=== PATIENT | female | born 1945 | race Hispanic/Latino ===

== ENCOUNTER 2018-05-31 16:44 | Emergency (ER) | payer MEDICARE ==
[~2018-05-31 16:44] MED LIST: ACET650T9 PO; AMLO10TA6 PO; CARV25TA PO; FOLI1TAB85 PO; FURO40TA5 PO; GLIM2TAB3 PO; HYDR100T27 PO; INSLAN SQ
== END 2018-05-31 17:38 | disposition home or self-care (01) ==
LOC: EDH 16:44
DX: I10 Essential (primary) hypertension (principal); F41.9 Anxiety disorder, unspecified; E11.9 Type 2 diabetes mellitus without complications; E78.5 Hyperlipidemia, unspecified; Z79.4 Long term (current) use of insulin
CPT/HCPCS: 99281

== ENCOUNTER 2018-08-16 18:08 | Emergency (ER) | payer MEDICARE ==
[~2018-08-16 18:08] MED LIST changes: -AMLO10TA6 PO; +AMLO10TA7 PO
[2018-08-16] MEDS ORDERED: CLINDAMYCIN HCL 150 MG CAP ONE (18:42)
[2018-08-16 18:58] LABS: BASOPHILS % (AUTO) 0.6 % (0.0-5.0); EOSINOPHILS % (AUTO) 3.2 % (0.0-8.0); HEMATOCRIT 31.3 % (36-48); LYMPHOCYTES % (AUTO) 36.4 % (21.0-51.0); MEAN CORPUSCULAR HEMOGLOBIN 31.1 pg (27.0-33.0); MEAN CORPUSCULAR HGB CONC 34.9 g/dL (32.0-36.0); MEAN CORPUSCULAR VOLUME 89.3 fL (79-99); MONOCYTES % (AUTO) 7.7 % (3.0-13.0); NEUTROPHILS % (AUTO) 52.1 % (40.0-77.0); NUCLEATED RED BLOOD CELLS 0.1 % (0.0-0.19); PLATELET COUNT (AUTO) 190 K/uL (130-400); RED BLOOD CELL COUNT(AUTO) 3.51 MIL/uL (4.00-5.50); WHITE BLOOD COUNT (AUTO) 6.9 K/uL (4.8-10.8)
[2018-08-16 19:34] LABS: CREATININE 2.5 mg/dL (0.5-1.5); POTASSIUM 4.1 mmol/L (3.5-5.1)
[2018-08-16 19:37] LABS: ALBUMIN 3.4 g/dL (3.5-5.0); BILIRUBIN,TOTAL 0.2 mg/dL (0.2-1.0); TOTAL PROTEIN, SERUM 7.8 g/dL (6.0-8.3)
== END 2018-08-16 21:09 | disposition home or self-care (01) ==
LOC: EDH 18:08
DX: L03.031 Cellulitis of right toe (principal); I12.9 Hypertensive chronic kidney disease with stage 1 through stage 4 chronic kidney disease, or unspecified chronic kidney disease; E11.22 Type 2 diabetes mellitus with diabetic chronic kidney disease; N18.9 Chronic kidney disease, unspecified; E78.5 Hyperlipidemia, unspecified; Z79.4 Long term (current) use of insulin
CPT/HCPCS: 36415; 73630; 80053; 85025

== ENCOUNTER → 2018-08-26 | Outpatient (CLI) | payer MEDICARE | END | disposition home or self-care (01) | LOC: OIH 09:55 | PROVIDERS: ATTEND Internal Medicine | DX: L03.031 Cellulitis of right toe (principal); M79.671 Pain in right foot; I70.8 Atherosclerosis of other arteries | CPT/HCPCS: 73620 ==

== ENCOUNTER 2020-08-10 09:32 | Inpatient (IN) | payer MEDICARE ==
[~2020-08-10] VITALS: Ht 160 cm; Wt 91.9 kg
[~2020-08-10 09:32] MED LIST changes: -ACET650T9 PO; +AMLO-258 PO; -AMLO10TA7 PO; +ATOR20TA65 PO; -CARV25TA PO; +CARV25TA77 PO; +FERR-82 PO; -FURO40TA5 PO; -GLIM2TAB3 PO; -HYDR100T27 PO; -INSLAN SQ; +SODI650T PO
[2020-08-10 10:04] LABS: ABG BASE EXCESS -11.1 mmol/L (-2.0-3.0); ABG HCO3 14.7 mmol/L (21.0-28.0); ABG OXYGEN SATURATION 79.5 % (95.0-99.0); ABG PCO2 33 mmHg (32-45)
[2020-08-10 10:04] LABS: BASOPHILS % (AUTO) 0.2 % (0.0-5.0); LYMPHOCYTES % (AUTO) 5.6 % (21.0-51.0); MEAN CORPUSCULAR HEMOGLOBIN 30.2 pg (27.0-33.0); MEAN CORPUSCULAR HGB CONC 32.9 g/dL (32.0-36.0); MEAN CORPUSCULAR VOLUME 91.8 fL (79-99); MONOCYTES % (AUTO) 6.4 % (3.0-13.0); NEUTROPHILS % (AUTO) 87.1 % (40.0-77.0); PLATELET COUNT (AUTO) 208 K/uL (130-400); RED BLOOD CELL COUNT(AUTO) 3.05 MIL/uL (4.00-5.50); RED CELL DISTRIBUTION WIDTH 12.3 % (11.0-15.5)
[2020-08-10 10:17] LABS: INR 0.94 (0.85-1.15); PROTHROMBIN TIME 10.3 SEC (9.6-11.6)
[2020-08-10 10:18] LABS: PARTIAL THROMBOPLASTIN TIME 23.1 SEC (26.3-35.5)
[2020-08-10 10:30] LABS: ALBUMIN 2.7 g/dL (3.5-5.0); BILIRUBIN,TOTAL 0.5 mg/dL (0.2-1.0); CREATININE 3.5 mg/dL (0.5-1.5); POTASSIUM 5.7 mmol/L (3.5-5.1); TROPONIN I 0.13 ng/mL (0.00-0.06)
[2020-08-10] MEDS ORDERED: CALCIUM GLUC 1GM/10ML VIAL IV ONE (11:13)
[2020-08-10] MEDS ORDERED: ASPIRIN 325 MG TABLET ONE (11:14)
[2020-08-10] MEDS ORDERED: FUROSEMIDE 40MG VIAL ONE (11:14)
[2020-08-10] MEDS ORDERED: INSULIN HUMULIN R 100 UNIT/ML 3ML ONE ×2 (11:15→16:26)
[2020-08-10] MEDS ORDERED: 0.9%NACL 100ML 100 ML IV ONE (11:17)
[2020-08-10 11:49] LABS: APPEARANCE,URINE CLOUDY (CLEAR); BILIRUBIN,URINE NEGATIVE (NEGATIVE); COLOR,URINE YELLOW (YELLOW); GLUCOSE, URINE (UA) 500 mg/dL (NEGATIVE); KETONES,URINE NEGATIVE (NEGATIVE); LEUKOCYTE ESTERASE ,URINE NEGATIVE (NEGATIVE); NITRATE,URINE NEGATIVE (NEGATIVE); OCCULT BLOOD,URINE SMALL (NEGATIVE); PH,URINE 5.5 (5.0-8.0); PROTEIN,URINE >=300 mg/dL (NEGATIVE); UROBILINOGEN,URINE 0.2 mg/dL (0.2-1.0)
[2020-08-10 11:59] LABS: AMORPHOUS SEDIMENT,UR Moderate /LPF (None Seen); BACTERIA,URINE Few /HPF (None Seen); RBC,URINE 0-1 /HPF (0-1); SQUAMOUS EPITHELIAL CELL,UR 0-2 /HPF (0-2); WBC,URINE 0-1 /HPF (0-1)
[2020-08-10] MEDS ORDERED: ENOXAPARIN SODIUM 80 MG/0.8 ML SQ ONE (12:57)
[2020-08-10] MEDS ORDERED: LACTULOSE 20 GM/30 ML UDCUP PO PRN ×2 (13:30→20:15)
[2020-08-10] MEDS ORDERED: NITROGLYCERIN 50MG/D5W 250ML 250 BOT IV PRN (13:30)
[2020-08-10] MEDS ORDERED: CLONIDINE HCL 0.1 MG TABLET PO PRN (13:30)
[2020-08-10] MEDS ORDERED: MORPHINE 2 MG SYG IVP PRN (13:30)
[2020-08-10] MEDS ORDERED: DEXTROSE 50%-WATER 50 ML DISP.SYRIN IV PRN (13:30)
[2020-08-10] MEDS: FUROSEMIDE 40MG VIAL IV SCH (13:30)
[2020-08-10] MEDS ORDERED: GLUCAGON 1MG KIT 1 MG ML IM PRN (13:30)
[2020-08-10] MEDS: NITROGLYCERIN 1GM OINT 1 INCH/1GM TD SCH ×2 (13:30→19:30)
[2020-08-10] MEDS ORDERED: ACETAMINOPHEN 650 MG SUPPOSITORY RC PRN (13:30)
[2020-08-10] MEDS ORDERED: NITROGLYCERIN 0.4 MG SL TAB SL PRN (13:30)
[2020-08-10] MEDS ORDERED: SODIUM BICARBONATE 650 MG TAB ONE (14:05)
[2020-08-10] MEDS ORDERED: NITROGLYCERIN 1GM OINT 1 INCH/1GM TD ONE (14:06)
[2020-08-10 14:44] LABS: TROPONIN I 0.95 ng/mL (0.00-0.06)
[2020-08-10] MEDS ORDERED: INSULIN HUMULIN R 100 UNIT/ML 3ML SQ SCH (16:30)
[2020-08-10] MEDS: SODIUM BICARBONATE 650 MG TAB PO SCH (17:00)
[2020-08-10 19:00] VITALS: BP 155/64
[2020-08-10 20:00] VITALS: BP 154/76
[2020-08-10] MEDS ORDERED: RENAL DOSE IV PRN (20:00)
[2020-08-10 20:03] LABS: TROPONIN I 0.92 ng/mL (0.00-0.06)
[2020-08-10] MEDS ORDERED: ALBUTEROL 0.083% 2.5 MG/3 ML INH IH PRN (20:30)
[2020-08-10] MEDS: INSULIN HUMULIN R 100 UNIT/ML 3ML SQ SCH (20:30)
[2020-08-10 21:00] VITALS: BP 163/83
[2020-08-10] MEDS ORDERED: KAYEXALATE 15GM/60ML PO SCH (21:15)
[2020-08-10 22:00] VITALS: BP 177/80
[2020-08-10] MEDS: SOLU-MEDROL 40MG VIAL IVP SCH (22:16)
[2020-08-10] MEDS: METOPROLOL TARTRATE 25 MG TAB PO SCH (22:16)
[2020-08-10] MEDS: CEFTRIAXONE 1G VIAL IVP SCH (22:38)
[2020-08-10 23:00] VITALS: BP 163/76
[2020-08-10] MEDS: AZITHROMYCIN 500MG+NS 250ML 250 ML IV SCH (23:10)
[2020-08-11] VITALS (14 sets, daily range): BP systolic 147–172; BP diastolic 56–79
[2020-08-11] MEDS: NITROGLYCERIN 1GM OINT 1 INCH/1GM TD SCH ×4 (01:30→21:11)
[2020-08-11] MEDS: FUROSEMIDE 40MG VIAL IV SCH ×2 (01:30→12:38)
[2020-08-11 02:05] LABS: BASOPHILS % (AUTO) 0.3 % (0.0-5.0); HEMATOCRIT 24.2 % (36-48); LYMPHOCYTES % (AUTO) 3.4 % (21.0-51.0); MEAN CORPUSCULAR HEMOGLOBIN 30.2 pg (27.0-33.0); MEAN CORPUSCULAR HGB CONC 33.5 g/dL (32.0-36.0); MEAN CORPUSCULAR VOLUME 90.3 fL (79-99); MONOCYTES % (AUTO) 2.4 % (3.0-13.0); NEUTROPHILS % (AUTO) 93.4 % (40.0-77.0); PLATELET COUNT (AUTO) 191 K/uL (130-400); RED BLOOD CELL COUNT(AUTO) 2.68 MIL/uL (4.00-5.50); RED CELL DISTRIBUTION WIDTH 12.5 % (11.0-15.5); WHITE BLOOD COUNT (AUTO) 11.6 K/uL (4.8-10.8)
[2020-08-11 02:27] LABS: RETICULOCYTE % (AUTO) 2.41 % (0.42-2.23)
[2020-08-11 02:38] LABS: CREATININE 3.4 mg/dL (0.5-1.5); MAGNESIUM 2.3 mg/dL (1.80-2.40); PHOSPHORUS 4.9 mg/dL (2.5-4.9); THYROID STIMULATING HORMONE 1.23 uIU/mL (0.36-3.74)
[2020-08-11 02:42] LABS: TROPONIN I 0.61 ng/mL (0.00-0.06)
[2020-08-11 03:11] LABS: % IRON SATURATION 6.4 % (22-44)
[2020-08-11 05:21] LABS: ABG OXYGEN SATURATION 93.8 % (95.0-99.0); ABG PCO2 31 mmHg (32-45)
[2020-08-11] MEDS ORDERED: FUROSEMIDE 40MG VIAL IV SCH (05:30)
[2020-08-11] MEDS ORDERED: INSULIN HUMULIN R 100 UNIT/ML 3ML IV SCH (05:30)
[2020-08-11] MEDS ORDERED: CALCIUM GLUC 1GM/10ML VIAL IV SCH (05:30)
[2020-08-11] MEDS ORDERED: DEXTROSE 50%-WATER 25 GM/50 ML VIAL IV SCH (05:30)
[2020-08-11] MEDS ORDERED: KAYEXALATE 15GM/60ML RC SCH (05:30)
[2020-08-11] MEDS ORDERED: SODIUM BICARB 50MEQ 50ML VIAL IVPB ONE (05:30)
[2020-08-11] MEDS: INSULIN HUMULIN R 100 UNIT/ML 3ML SQ SCH ×4 (06:40→16:55)
[2020-08-11] MEDS: PANTOPRAZOLE 40 MG TAB DR PO SCH ×2 (08:00→08:30)
[2020-08-11] MEDS: METOPROLOL TARTRATE 25 MG TAB PO SCH ×2 (08:30→21:11)
[2020-08-11] MEDS ORDERED: KAYEXALATE 15GM/60ML PO PRN (08:30)
[2020-08-11] MEDS: SODIUM BICARBONATE 650 MG TAB PO SCH ×3 (08:30→17:00)
[2020-08-11] MEDS: ASPIRIN 81MG CHEW TAB PO SCH (08:31)
[2020-08-11] MEDS: Vitamin B Complex/Vit C/Folic Acid PO SCH (08:31)
[2020-08-11] MEDS: ENOXAPARIN SODIUM 80 MG/0.8 ML SQ SCH (08:32)
[2020-08-11] MEDS: SOLU-MEDROL 40MG VIAL IVP SCH ×2 (08:33→21:12)
[2020-08-11] MEDS ORDERED: ENOXAPARIN SODIUM 30 MG/0.3 ML SQ SCH (09:00)
[2020-08-11] MEDS ORDERED: IRON SUCROSE COMPLEX 100 MG in 0.9%NACL 50ML 50 ML IV ONE (16:00)
[2020-08-11] MEDS ORDERED: COMPOUND IV MISC 1 EACH IVSOLN MISC PRN (16:30)
[2020-08-11] MEDS: IRON SUCROSE COMPLEX 100 MG in 0.9%NACL 50ML 50 ML IV SCH (17:32)
[2020-08-11] MEDS: LABETALOL 20MG SYG IV PRN (19:00)
[2020-08-11] MEDS: CEFTRIAXONE 1G VIAL IVP SCH (21:11)
[2020-08-11] MEDS: AZITHROMYCIN 500MG+NS 250ML 250 ML IV SCH (21:27)
[2020-08-12] VITALS (23 sets, daily range): BP systolic 112–168; BP diastolic 53–117
[2020-08-12] MEDS ORDERED: INSULIN HUMULIN R 100 UNIT/ML 3ML SQ ONE (00:15)
[2020-08-12] MEDS: FUROSEMIDE 40MG VIAL IV SCH ×2 (00:40→21:14)
[2020-08-12] MEDS: NITROGLYCERIN 1GM OINT 1 INCH/1GM TD SCH ×4 (00:41→21:38)
[2020-08-12 03:44] LABS: ABG BASE EXCESS -4.1 mmol/L (-2.0-3.0); ABG HCO3 20.8 mmol/L (21.0-28.0); ABG OXYGEN SATURATION 93.9 % (95.0-99.0); ABG PCO2 38 mmHg (32-45)
[2020-08-12 03:48] LABS: BASOPHILS % (AUTO) 0.1 % (0.0-5.0); HEMATOCRIT 22.8 % (36-48); LYMPHOCYTES % (AUTO) 5.8 % (21.0-51.0); MEAN CORPUSCULAR HEMOGLOBIN 29.4 pg (27.0-33.0); MEAN CORPUSCULAR HGB CONC 32.9 g/dL (32.0-36.0); MEAN CORPUSCULAR VOLUME 89.4 fL (79-99); MONOCYTES % (AUTO) 4.7 % (3.0-13.0); NEUTROPHILS % (AUTO) 88.8 % (40.0-77.0); NUCLEATED RED BLOOD CELLS 0.3 % (0.0-0.19); PLATELET COUNT (AUTO) 211 K/uL (130-400); RED BLOOD CELL COUNT(AUTO) 2.55 MIL/uL (4.00-5.50); RED CELL DISTRIBUTION WIDTH 12.2 % (11.0-15.5); WHITE BLOOD COUNT (AUTO) 7.7 K/uL (4.8-10.8)
[2020-08-12 04:04] LABS: ALBUMIN 2.2 g/dL (3.5-5.0); BILIRUBIN,TOTAL 0.2 mg/dL (0.2-1.0); CREATININE 3.9 mg/dL (0.5-1.5); PHOSPHORUS 6.7 mg/dL (2.5-4.9)
[2020-08-12] MEDS: INSULIN HUMULIN R 100 UNIT/ML 3ML SQ SCH ×4 (05:35→17:04)
[2020-08-12] MEDS: PANTOPRAZOLE 40 MG TAB DR PO SCH (08:08)
[2020-08-12] MEDS: SODIUM BICARBONATE 650 MG TAB PO SCH ×3 (08:08→17:05)
[2020-08-12] MEDS: ASPIRIN 81MG CHEW TAB PO SCH (08:09)
[2020-08-12] MEDS: Vitamin B Complex/Vit C/Folic Acid PO SCH (08:09)
[2020-08-12] MEDS: SOLU-MEDROL 40MG VIAL IVP SCH (08:09)
[2020-08-12] MEDS: METOPROLOL TARTRATE 25 MG TAB PO SCH ×2 (08:09→21:37)
[2020-08-12] MEDS: IRON SUCROSE COMPLEX 100 MG in 0.9%NACL 50ML 50 ML IV SCH (08:10)
[2020-08-12] MEDS: ENOXAPARIN SODIUM 80 MG/0.8 ML SQ SCH (08:11)
[2020-08-12] MEDS: INSULIN GLARGINE 100 UNITS/ML 10 ML VIAL SQ SCH (08:13)
[2020-08-12] MEDS ORDERED: IRON SUCROSE COMPLEX 100 MG in 0.9%NACL 50ML 50 ML IV SCH ×2 (09:00→20:00)
[2020-08-12] MEDS ORDERED: FUROSEMIDE 40MG VIAL IV SCH (10:45)
[2020-08-12] MEDS: AMLODIPINE 5 MG TAB PO SCH (11:47)
[2020-08-12] MEDS: CARVEDILOL 25 MG TABLET PO SCH ×2 (11:47→21:37)
[2020-08-12] MEDS: ACETAMINOPHEN 325 MG TAB PO PRN (17:56)
[2020-08-12] MEDS: CEFTRIAXONE 1G VIAL IVP SCH (21:12)
[2020-08-12] MEDS: AZITHROMYCIN 500MG+NS 250ML 250 ML IV SCH (21:19)
[2020-08-12] MEDS: ATORVASTATIN 20 MG TABLET PO SCH (21:36)
[2020-08-13] VITALS (15 sets, daily range): BP systolic 139–170; BP diastolic 40–90
[2020-08-13] MEDS: INSULIN HUMULIN R 100 UNIT/ML 3ML SQ SCH ×4 (02:11→16:48)
[2020-08-13] MEDS: NITROGLYCERIN 1GM OINT 1 INCH/1GM TD SCH ×4 (03:30→21:12)
[2020-08-13 03:51] LABS: HEMATOCRIT 21.7 % (36-48); MEAN CORPUSCULAR HEMOGLOBIN 30.2 pg (27.0-33.0); MEAN CORPUSCULAR HGB CONC 34.1 g/dL (32.0-36.0); MEAN CORPUSCULAR VOLUME 88.6 fL (79-99); NUCLEATED RED BLOOD CELLS 0.4 % (0.0-0.19); PLATELET COUNT (AUTO) 213 K/uL (130-400); RED BLOOD CELL COUNT(AUTO) 2.45 MIL/uL (4.00-5.50); RED CELL DISTRIBUTION WIDTH 11.9 % (11.0-15.5); WHITE BLOOD COUNT (AUTO) 7.2 K/uL (4.8-10.8)
[2020-08-13 04:03] LABS: CREATININE 3.9 mg/dL (0.5-1.5); MAGNESIUM 2.3 mg/dL (1.80-2.40); POTASSIUM 3.7 mmol/L (3.5-5.1)
[2020-08-13 05:42] LABS: LYMPHOCYTES % (MANUAL) 9 % (22-44); MAN.DIFF COMMENT-IMPRESSION MANUAL DIFFERENTIAL; MONOCYTES % (MANUAL) 6 % (2-9); PLATELET MORPHOLOGY COMMENT ADEQUATE; REACTIVE LYMPHOCYTES 2 % (0-0); SEGMENTED NEUTROPHILS % 83 % (40-70)
[2020-08-13] MEDS: AMLODIPINE 5 MG TAB PO SCH (08:35)
[2020-08-13] MEDS: PANTOPRAZOLE 40 MG TAB DR PO SCH (08:35)
[2020-08-13] MEDS: SODIUM BICARBONATE 650 MG TAB PO SCH ×3 (08:35→16:46)
[2020-08-13] MEDS: Vitamin B Complex/Vit C/Folic Acid PO SCH (08:35)
[2020-08-13] MEDS: INSULIN GLARGINE 100 UNITS/ML 10 ML VIAL SQ SCH (08:41)
[2020-08-13] MEDS: ENOXAPARIN SODIUM 80 MG/0.8 ML SQ SCH (08:42)
[2020-08-13] MEDS: ASPIRIN 81MG CHEW TAB PO SCH (08:43)
[2020-08-13] MEDS: CARVEDILOL 25 MG TABLET PO SCH ×2 (09:00→20:59)
[2020-08-13] MEDS: METOPROLOL TARTRATE 25 MG TAB PO SCH (09:00)
[2020-08-13] MEDS: IRON SUCROSE COMPLEX 100 MG in 0.9%NACL 50ML 50 ML IV SCH (09:21)
[2020-08-13] MEDS ORDERED: CARVEDILOL 12.5 MG TABLET PO SCH (12:06)
[2020-08-13] MEDS: ATORVASTATIN 20 MG TABLET PO SCH (20:57)
[2020-08-13] MEDS: CEFTRIAXONE 1G VIAL IVP SCH (20:59)
[2020-08-13] MEDS: TAMSULOSIN HCL 0.4 MG CAP.ER.24H PO SCH (20:59)
[2020-08-13] MEDS: FUROSEMIDE 40MG VIAL IV SCH (21:01)
[2020-08-13] MEDS: AZITHROMYCIN 500MG+NS 250ML 250 ML IV SCH (21:01)
[2020-08-14 00:04] VITALS: BP 141/58
[2020-08-14] MEDS: INSULIN HUMULIN R 100 UNIT/ML 3ML SQ SCH ×4 (01:37→18:00)
[2020-08-14 04:08] VITALS: BP 156/56
[2020-08-14 05:54] LABS: HEMATOCRIT 22.2 % (36-48); MEAN CORPUSCULAR HEMOGLOBIN 29.6 pg (27.0-33.0); MEAN CORPUSCULAR HGB CONC 33.3 g/dL (32.0-36.0); MEAN CORPUSCULAR VOLUME 88.8 fL (79-99); PLATELET COUNT (AUTO) 214 K/uL (130-400); RED CELL DISTRIBUTION WIDTH 11.9 % (11.0-15.5); WHITE BLOOD COUNT (AUTO) 8.8 K/uL (4.8-10.8)
[2020-08-14 06:05] LABS: CREATININE 3.7 mg/dL (0.5-1.5); PHOSPHORUS 5.4 mg/dL (2.5-4.9); POTASSIUM 3.3 mmol/L (3.5-5.1)
[2020-08-14] MEDS: NITROGLYCERIN 1GM OINT 1 INCH/1GM TD SCH ×4 (06:06→20:43)
[2020-08-14] MEDS: PANTOPRAZOLE 40 MG TAB DR PO SCH (06:06)
[2020-08-14 07:11] LABS: ALBUMIN 2.3 g/dL (3.5-5.0); BILIRUBIN,TOTAL 0.1 mg/dL (0.2-1.0); TOTAL PROTEIN, SERUM 6.2 g/dL (6.0-8.3)
[2020-08-14 07:20] LABS: BAND NEUTROPHILS % (MANUAL) 1 % (0-2); EOSINOPHILS % (MANUAL) 1 % (1-6); LYMPHOCYTES % (MANUAL) 27 % (22-44); MAN.DIFF COMMENT-IMPRESSION MANUAL DIFFERENTIAL; MONOCYTES % (MANUAL) 8 % (2-9); REACTIVE LYMPHOCYTES 4 % (0-0); SEGMENTED NEUTROPHILS % 59 % (40-70)
[2020-08-14 07:22] LABS: PLATELET MORPHOLOGY COMMENT ADEQUATE
[2020-08-14 08:03] VITALS: BP 144/45
[2020-08-14] MEDS ORDERED: EPOETIN ALFA-EPBX (ESRD) 10,000 UNIT/ML VIAL SQ SCH (09:00)
[2020-08-14] MEDS: ASPIRIN 81MG CHEW TAB PO SCH (09:19)
[2020-08-14] MEDS: Vitamin B Complex/Vit C/Folic Acid PO SCH (09:19)
[2020-08-14] MEDS: AMLODIPINE 5 MG TAB PO SCH (09:19)
[2020-08-14] MEDS: CARVEDILOL 25 MG TABLET PO SCH ×2 (09:20→20:40)
[2020-08-14] MEDS: SODIUM BICARBONATE 650 MG TAB PO SCH ×3 (09:21→18:02)
[2020-08-14] MEDS: ENOXAPARIN SODIUM 80 MG/0.8 ML SQ SCH (09:22)
[2020-08-14] MEDS: INSULIN GLARGINE 100 UNITS/ML 10 ML VIAL SQ SCH (09:33)
[2020-08-14 12:10] VITALS: BP 144/42
[2020-08-14] MEDS: IRON SUCROSE COMPLEX 100 MG in 0.9%NACL 50ML 50 ML IV SCH (14:38)
[2020-08-14 16:08] VITALS: BP 160/73
[2020-08-14 20:00] VITALS: BP 155/59
[2020-08-14] MEDS: AZITHROMYCIN 500MG+NS 250ML 250 ML IV SCH (20:35)
[2020-08-14] MEDS: ATORVASTATIN 20 MG TABLET PO SCH (20:37)
[2020-08-14] MEDS: TAMSULOSIN HCL 0.4 MG CAP.ER.24H PO SCH (20:37)
[2020-08-14] MEDS: CEFTRIAXONE 1G VIAL IVP SCH (20:41)
[2020-08-14] MEDS: FUROSEMIDE 40MG VIAL IV SCH (20:42)
[2020-08-14] MEDS: ACETAMINOPHEN 325 MG TAB PO PRN (20:51)
[2020-08-15] VITALS: BP 159/61
[2020-08-15] MEDS: INSULIN HUMULIN R 100 UNIT/ML 3ML SQ SCH ×4 (02:01→18:00)
[2020-08-15] MEDS: ACETAMINOPHEN 325 MG TAB PO PRN ×2 (02:59→18:47)
[2020-08-15 04:00] VITALS: BP 154/74
[2020-08-15] MEDS: PANTOPRAZOLE 40 MG TAB DR PO SCH (04:52)
[2020-08-15] MEDS: NITROGLYCERIN 1GM OINT 1 INCH/1GM TD SCH ×4 (04:53→21:43)
[2020-08-15 05:10] LABS: BASOPHILS % (AUTO) 0.1 % (0.0-5.0); EOSINOPHILS % (AUTO) 1.4 % (0.0-8.0); LYMPHOCYTES % (AUTO) 19.3 % (21.0-51.0); MEAN CORPUSCULAR HGB CONC 33.7 g/dL (32.0-36.0); MONOCYTES % (AUTO) 10.1 % (3.0-13.0); NEUTROPHILS % (AUTO) 66.5 % (40.0-77.0); NUCLEATED RED BLOOD CELLS 0.3 % (0.0-0.19); PLATELET COUNT (AUTO) 210 K/uL (130-400); RED BLOOD CELL COUNT(AUTO) 2.27 MIL/uL (4.00-5.50); RED CELL DISTRIBUTION WIDTH 11.9 % (11.0-15.5); WHITE BLOOD COUNT (AUTO) 7.7 K/uL (4.8-10.8)
[2020-08-15 05:14] LABS: HEMATOCRIT 20.2 % (36-48)
[2020-08-15 05:32] LABS: CREATININE 3.8 mg/dL (0.5-1.5); PHOSPHORUS 5.7 mg/dL (2.5-4.9); POTASSIUM 3.5 mmol/L (3.5-5.1)
[2020-08-15 08:07] VITALS: BP 137/45
[2020-08-15] MEDS: ENOXAPARIN SODIUM 80 MG/0.8 ML SQ SCH (09:00)
[2020-08-15] MEDS: IRON SUCROSE COMPLEX 100 MG in 0.9%NACL 50ML 50 ML IV SCH (09:10)
[2020-08-15] MEDS: ASPIRIN 81MG CHEW TAB PO SCH (09:11)
[2020-08-15] MEDS: SODIUM BICARBONATE 650 MG TAB PO SCH ×3 (09:11→18:47)
[2020-08-15] MEDS: CARVEDILOL 25 MG TABLET PO SCH ×2 (09:13→21:14)
[2020-08-15] MEDS: Vitamin B Complex/Vit C/Folic Acid PO SCH (09:13)
[2020-08-15] MEDS: AMLODIPINE 5 MG TAB PO SCH (09:14)
[2020-08-15] MEDS: INSULIN GLARGINE 100 UNITS/ML 10 ML VIAL SQ SCH (09:37)
[2020-08-15] MEDS: ONDANSETRON 4MG INJ IVP PRN ×2 (09:38→21:43)
[2020-08-15 12:24] VITALS: BP 164/59
[2020-08-15 14:57] LABS: HEMATOCRIT 23.1 % (36-48)
[2020-08-15 16:21] VITALS: BP 151/51
[2020-08-15 20:00] VITALS: BP 160/47
[2020-08-15] MEDS: AZITHROMYCIN 500MG+NS 250ML 250 ML IV SCH (21:08)
[2020-08-15] MEDS: FUROSEMIDE 40MG VIAL IV SCH (21:09)
[2020-08-15] MEDS: CEFTRIAXONE 1G VIAL IVP SCH (21:10)
[2020-08-15] MEDS: TAMSULOSIN HCL 0.4 MG CAP.ER.24H PO SCH (21:14)
[2020-08-15] MEDS: ATORVASTATIN 20 MG TABLET PO SCH (21:17)
[2020-08-16] VITALS: BP 104/59
[2020-08-16] MEDS: INSULIN HUMULIN R 100 UNIT/ML 3ML SQ SCH ×4 (00:09→17:05)
[2020-08-16] MEDS: ACETAMINOPHEN 325 MG TAB PO PRN ×2 (00:37→20:28)
[2020-08-16] MEDS: NITROGLYCERIN 1GM OINT 1 INCH/1GM TD SCH ×4 (02:57→22:53)
[2020-08-16 04:00] VITALS: BP 191/63
[2020-08-16 04:32] LABS: BASOPHILS % (AUTO) 0.2 % (0.0-5.0); EOSINOPHILS % (AUTO) 0.5 % (0.0-8.0); HEMATOCRIT 24.5 % (36-48); LYMPHOCYTES % (AUTO) 12.5 % (21.0-51.0); MEAN CORPUSCULAR HEMOGLOBIN 29.7 pg (27.0-33.0); MEAN CORPUSCULAR HGB CONC 33.9 g/dL (32.0-36.0); MEAN CORPUSCULAR VOLUME 87.8 fL (79-99); MONOCYTES % (AUTO) 8.5 % (3.0-13.0); NEUTROPHILS % (AUTO) 76.5 % (40.0-77.0); NUCLEATED RED BLOOD CELLS 0.3 % (0.0-0.19); PLATELET COUNT (AUTO) 226 K/uL (130-400); RED BLOOD CELL COUNT(AUTO) 2.79 MIL/uL (4.00-5.50); RED CELL DISTRIBUTION WIDTH 12.2 % (11.0-15.5)
[2020-08-16 04:48] LABS: ALBUMIN 2.5 g/dL (3.5-5.0); BILIRUBIN,TOTAL 0.3 mg/dL (0.2-1.0); CREATININE 3.5 mg/dL (0.5-1.5); PHOSPHORUS 4.9 mg/dL (2.5-4.9); POTASSIUM 3.8 mmol/L (3.5-5.1); TOTAL PROTEIN, SERUM 6.6 g/dL (6.0-8.3)
[2020-08-16] MEDS: PANTOPRAZOLE 40 MG TAB DR PO SCH (06:19)
[2020-08-16] MEDS: ASPIRIN 81MG CHEW TAB PO SCH (09:00)
[2020-08-16 09:06] VITALS: BP 175/75
[2020-08-16] MEDS: SODIUM BICARBONATE 650 MG TAB PO SCH ×3 (10:19→15:32)
[2020-08-16] MEDS: Vitamin B Complex/Vit C/Folic Acid PO SCH (10:19)
[2020-08-16] MEDS: ENOXAPARIN SODIUM 80 MG/0.8 ML SQ SCH (10:19)
[2020-08-16] MEDS: CARVEDILOL 25 MG TABLET PO SCH ×2 (10:20→22:50)
[2020-08-16] MEDS: AMLODIPINE 5 MG TAB PO SCH (10:20)
[2020-08-16] MEDS: IRON SUCROSE COMPLEX 100 MG in 0.9%NACL 50ML 50 ML IV SCH (10:20)
[2020-08-16] MEDS: INSULIN GLARGINE 100 UNITS/ML 10 ML VIAL SQ SCH (10:23)
[2020-08-16 13:08] VITALS: BP 149/66
[2020-08-16 17:51] VITALS: BP 149/93
[2020-08-16 20:00] VITALS: BP 146/55
[2020-08-16] MEDS: AZITHROMYCIN 500MG+NS 250ML 250 ML IV SCH (20:30)
[2020-08-16] MEDS: FUROSEMIDE 40MG VIAL IV SCH (20:32)
[2020-08-16] MEDS: CEFTRIAXONE 1G VIAL IVP SCH (20:32)
[2020-08-16] MEDS: TAMSULOSIN HCL 0.4 MG CAP.ER.24H PO SCH (22:51)
[2020-08-16] MEDS: ATORVASTATIN 20 MG TABLET PO SCH (22:51)
[2020-08-17] VITALS (7 sets, daily range): BP systolic 133–166; BP diastolic 40–98
[2020-08-17] MEDS: NITROGLYCERIN 1GM OINT 1 INCH/1GM TD SCH ×4 (03:02→22:15)
[2020-08-17] MEDS: ACETAMINOPHEN 325 MG TAB PO PRN (03:11)
[2020-08-17] MEDS: INSULIN HUMULIN R 100 UNIT/ML 3ML SQ SCH ×4 (06:00→16:00)
[2020-08-17] MEDS ORDERED: HYDROCODONE/ACETAMINOPHEN 5/325 MG TAB ONE (06:41)
[2020-08-17 07:01] LABS: BASOPHILS % (AUTO) 0.1 % (0.0-5.0); EOSINOPHILS % (AUTO) 1.2 % (0.0-8.0); HEMATOCRIT 21.2 % (36-48); LYMPHOCYTES % (AUTO) 14.4 % (21.0-51.0); MONOCYTES % (AUTO) 10.3 % (3.0-13.0); NEUTROPHILS % (AUTO) 72.4 % (40.0-77.0); PLATELET COUNT (AUTO) 214 K/uL (130-400); RED BLOOD CELL COUNT(AUTO) 2.33 MIL/uL (4.00-5.50); RED CELL DISTRIBUTION WIDTH 12.7 % (11.0-15.5); WHITE BLOOD COUNT (AUTO) 10.2 K/uL (4.8-10.8)
[2020-08-17 07:19] LABS: ALBUMIN 2.2 g/dL (3.5-5.0); BILIRUBIN,TOTAL 0.3 mg/dL (0.2-1.0); CREATININE 3.2 mg/dL (0.5-1.5); POTASSIUM 4.1 mmol/L (3.5-5.1); TOTAL PROTEIN, SERUM 5.9 g/dL (6.0-8.3)
[2020-08-17] MEDS: SODIUM BICARBONATE 650 MG TAB PO SCH ×3 (08:00→15:52)
[2020-08-17] MEDS: IRON SUCROSE COMPLEX 100 MG in 0.9%NACL 50ML 50 ML IV SCH (11:12)
[2020-08-17] MEDS: CARVEDILOL 25 MG TABLET PO SCH ×2 (11:13→22:15)
[2020-08-17] MEDS: Vitamin B Complex/Vit C/Folic Acid PO SCH (11:13)
[2020-08-17] MEDS: AMLODIPINE 5 MG TAB PO SCH (11:14)
[2020-08-17] MEDS: PANTOPRAZOLE 40 MG TAB DR PO SCH (11:14)
[2020-08-17] MEDS: ASPIRIN 81MG CHEW TAB PO SCH (11:14)
[2020-08-17] MEDS: INSULIN GLARGINE 100 UNITS/ML 10 ML VIAL SQ SCH (11:31)
[2020-08-17] MEDS: HYDROCODONE/ACETAMINOPHEN 5/325 MG TAB PO PRN ×2 (13:14→22:19)
[2020-08-17] MEDS: EPOETIN ALFA-EPBX (NON-ESRD) 10,000 UNIT/ML VIAL SQ SCH (15:52)
[2020-08-17] MEDS: ONDANSETRON 4MG INJ IVP PRN ×2 (18:03→22:19)
[2020-08-17] MEDS: TAMSULOSIN HCL 0.4 MG CAP.ER.24H PO SCH (22:14)
[2020-08-17] MEDS: ATORVASTATIN 20 MG TABLET PO SCH (22:15)
[2020-08-17] MEDS: FUROSEMIDE 40MG VIAL IV SCH (22:16)
[2020-08-17] MEDS: CEFTRIAXONE 1G VIAL IVP SCH (22:16)
[2020-08-18 03:29] LABS: MEAN CORPUSCULAR HEMOGLOBIN 29.6 pg (27.0-33.0); MEAN CORPUSCULAR HGB CONC 31.9 g/dL (32.0-36.0); MEAN CORPUSCULAR VOLUME 92.8 fL (79-99); NUCLEATED RED BLOOD CELLS 0.2 % (0.0-0.19); PLATELET COUNT (AUTO) 227 K/uL (130-400); RED BLOOD CELL COUNT(AUTO) 2.23 MIL/uL (4.00-5.50); RED CELL DISTRIBUTION WIDTH 12.7 % (11.0-15.5); WHITE BLOOD COUNT (AUTO) 10.8 K/uL (4.8-10.8)
[2020-08-18 03:34] VITALS: BP 155/66
[2020-08-18] MEDS: NITROGLYCERIN 1GM OINT 1 INCH/1GM TD SCH ×4 (03:36→18:02)
[2020-08-18 03:38] LABS: HEMATOCRIT 20.7 % (36-48)
[2020-08-18 03:44] LABS: ALBUMIN 2.2 g/dL (3.5-5.0); BILIRUBIN,DIRECT 0.1 mg/dL (0.0-0.3); BILIRUBIN,TOTAL 0.4 mg/dL (0.2-1.0); CREATININE 3.4 mg/dL (0.5-1.5); POTASSIUM 4.1 mmol/L (3.5-5.1); TOTAL PROTEIN, SERUM 5.9 g/dL (6.0-8.3)
[2020-08-18] MEDS ORDERED: 0.9% NACL 250ML 250 ML IV ONE (04:02)
[2020-08-18 04:35] VITALS: BP 150/52
[2020-08-18 04:51] LABS: BASOPHILS % (MANUAL) 1 % (0-2); LYMPHOCYTES % (MANUAL) 10 % (22-44); MAN.DIFF COMMENT-IMPRESSION MANUAL DIFFERENTIAL; MONOCYTES % (MANUAL) 7 % (2-9); PLATELET MORPHOLOGY COMMENT ADEQUATE; REACTIVE LYMPHOCYTES 1 % (0-0); SEGMENTED NEUTROPHILS % 81 % (40-70)
[2020-08-18] MEDS: ONDANSETRON 4MG INJ IVP PRN (05:03)
[2020-08-18] MEDS: HYDROCODONE/ACETAMINOPHEN 5/325 MG TAB PO PRN ×3 (05:04→21:44)
[2020-08-18] MEDS: INSULIN HUMULIN R 100 UNIT/ML 3ML SQ SCH ×4 (06:00→17:57)
[2020-08-18] MEDS: PANTOPRAZOLE 40 MG TAB DR PO SCH (06:36)
[2020-08-18 08:00] VITALS: BP 154/49
[2020-08-18] MEDS: SODIUM BICARBONATE 650 MG TAB PO SCH ×3 (09:07→17:27)
[2020-08-18] MEDS: Vitamin B Complex/Vit C/Folic Acid PO SCH (09:08)
[2020-08-18] MEDS: CARVEDILOL 25 MG TABLET PO SCH ×2 (09:32→21:46)
[2020-08-18] MEDS: AMLODIPINE 5 MG TAB PO SCH (09:37)
[2020-08-18] MEDS: IRON SUCROSE COMPLEX 100 MG in 0.9%NACL 50ML 50 ML IV SCH (09:42)
[2020-08-18] MEDS: INSULIN GLARGINE 100 UNITS/ML 10 ML VIAL SQ SCH (10:01)
[2020-08-18 12:00] VITALS: BP 170/73
[2020-08-18] MEDS ORDERED: HEPARIN 10,000 UNIT/10ML (1,000 UNIT/ML) VIAL ONE (14:52)
[2020-08-18] MEDS ORDERED: IODIXANOL 320 MG/ML 100 ML VIAL ONE (14:52)
[2020-08-18] MEDS ORDERED: LIDOCAINE HCL 1% MDV 50ML VIAL ONE (14:53)
[2020-08-18] MEDS: LABETALOL 20MG SYG IV PRN (18:00)
[2020-08-18 20:00] VITALS: BP 158/58
[2020-08-18] MEDS: CEFTRIAXONE 1G VIAL IVP SCH (21:46)
[2020-08-18] MEDS: TAMSULOSIN HCL 0.4 MG CAP.ER.24H PO SCH (21:46)
[2020-08-18] MEDS: ATORVASTATIN 20 MG TABLET PO SCH (21:46)
[2020-08-18] MEDS: FUROSEMIDE 40MG VIAL IV SCH (21:47)
[2020-08-19] VITALS: BP 163/48
[2020-08-19] MEDS: ACETAMINOPHEN 325 MG TAB PO PRN (02:22)
[2020-08-19] MEDS: NITROGLYCERIN 1GM OINT 1 INCH/1GM TD SCH ×4 (02:25→20:41)
[2020-08-19 04:00] VITALS: BP 168/54
[2020-08-19] MEDS: INSULIN HUMULIN R 100 UNIT/ML 3ML SQ SCH ×5 (05:34→20:22)
[2020-08-19 05:56] LABS: BASOPHILS % (AUTO) 0.3 % (0.0-5.0); EOSINOPHILS % (AUTO) 1.4 % (0.0-8.0); HEMATOCRIT 23.2 % (36-48); LYMPHOCYTES % (AUTO) 8.4 % (21.0-51.0); MEAN CORPUSCULAR HEMOGLOBIN 30.4 pg (27.0-33.0); MEAN CORPUSCULAR HGB CONC 33.2 g/dL (32.0-36.0); MEAN CORPUSCULAR VOLUME 91.7 fL (79-99); MONOCYTES % (AUTO) 10.5 % (3.0-13.0); NEUTROPHILS % (AUTO) 76.8 % (40.0-77.0); NUCLEATED RED BLOOD CELLS 0.1 % (0.0-0.19); PLATELET COUNT (AUTO) 250 K/uL (130-400); RED BLOOD CELL COUNT(AUTO) 2.53 MIL/uL (4.00-5.50); WHITE BLOOD COUNT (AUTO) 14.4 K/uL (4.8-10.8)
[2020-08-19] MEDS: PANTOPRAZOLE 40 MG TAB DR PO SCH (06:07)
[2020-08-19 06:08] LABS: ALBUMIN 2.3 g/dL (3.5-5.0); BILIRUBIN,TOTAL 0.5 mg/dL (0.2-1.0); CREATININE 3.6 mg/dL (0.5-1.5); POTASSIUM 4.1 mmol/L (3.5-5.1); TOTAL PROTEIN, SERUM 6.2 g/dL (6.0-8.3)
[2020-08-19] MEDS: SODIUM BICARBONATE 650 MG TAB PO SCH ×3 (08:22→16:20)
[2020-08-19] MEDS: CARVEDILOL 25 MG TABLET PO SCH ×2 (08:25→20:41)
[2020-08-19] MEDS: Vitamin B Complex/Vit C/Folic Acid PO SCH (08:25)
[2020-08-19] MEDS: AMLODIPINE 5 MG TAB PO SCH (08:25)
[2020-08-19] MEDS: INSULIN GLARGINE 100 UNITS/ML 10 ML VIAL SQ SCH (08:27)
[2020-08-19] MEDS: HYDROCODONE/ACETAMINOPHEN 5/325 MG TAB PO PRN ×3 (08:31→23:26)
[2020-08-19] MEDS: IRON SUCROSE COMPLEX 100 MG in 0.9%NACL 50ML 50 ML IV SCH (09:05)
[2020-08-19 12:00] VITALS: BP 154/50
[2020-08-19 16:17] VITALS: BP 157/51
[2020-08-19 19:00] VITALS: BP 164/55
[2020-08-19] MEDS: ATORVASTATIN 20 MG TABLET PO SCH (20:40)
[2020-08-19] MEDS: CEFTRIAXONE 1G VIAL IVP SCH (20:40)
[2020-08-19] MEDS: FUROSEMIDE 40MG VIAL IV SCH (20:40)
[2020-08-19] MEDS: TAMSULOSIN HCL 0.4 MG CAP.ER.24H PO SCH (20:41)
[2020-08-20] VITALS (8 sets, daily range): BP systolic 102–156; BP diastolic 57–78
[2020-08-20] MEDS: NITROGLYCERIN 1GM OINT 1 INCH/1GM TD SCH ×5 (03:07→23:58)
[2020-08-20 04:05] LABS: BASOPHILS % (AUTO) 0.3 % (0.0-5.0); EOSINOPHILS % (AUTO) 1.7 % (0.0-8.0); HEMATOCRIT 22.9 % (36-48); LYMPHOCYTES % (AUTO) 12.9 % (21.0-51.0); MEAN CORPUSCULAR HEMOGLOBIN 30.6 pg (27.0-33.0); MEAN CORPUSCULAR HGB CONC 33.2 g/dL (32.0-36.0); MEAN CORPUSCULAR VOLUME 92.3 fL (79-99); MONOCYTES % (AUTO) 11.9 % (3.0-13.0); NEUTROPHILS % (AUTO) 71.2 % (40.0-77.0); NUCLEATED RED BLOOD CELLS 0.3 % (0.0-0.19); PLATELET COUNT (AUTO) 242 K/uL (130-400); RED BLOOD CELL COUNT(AUTO) 2.48 MIL/uL (4.00-5.50); RED CELL DISTRIBUTION WIDTH 13.2 % (11.0-15.5); WHITE BLOOD COUNT (AUTO) 11.7 K/uL (4.8-10.8)
[2020-08-20 04:24] LABS: ALBUMIN 2.1 g/dL (3.5-5.0); BILIRUBIN,TOTAL 0.4 mg/dL (0.2-1.0); CREATININE 4.4 mg/dL (0.5-1.5); TOTAL PROTEIN, SERUM 5.9 g/dL (6.0-8.3)
[2020-08-20] MEDS: INSULIN HUMULIN R 100 UNIT/ML 3ML SQ SCH ×4 (06:00→23:59)
[2020-08-20] MEDS: INSULIN GLARGINE 100 UNITS/ML 10 ML VIAL SQ SCH (08:58)
[2020-08-20] MEDS: HYDROCODONE/ACETAMINOPHEN 5/325 MG TAB PO PRN ×2 (09:07→15:07)
[2020-08-20] MEDS: SODIUM BICARBONATE 650 MG TAB PO SCH ×3 (09:08→16:18)
[2020-08-20] MEDS: IRON SUCROSE COMPLEX 100 MG in 0.9%NACL 50ML 50 ML IV SCH (09:10)
[2020-08-20] MEDS: PANTOPRAZOLE 40 MG TAB DR PO SCH (09:12)
[2020-08-20] MEDS: CARVEDILOL 25 MG TABLET PO SCH ×2 (09:13→20:16)
[2020-08-20] MEDS: AMLODIPINE 5 MG TAB PO SCH (09:13)
[2020-08-20] MEDS: Vitamin B Complex/Vit C/Folic Acid PO SCH (09:13)
[2020-08-20] MEDS: ONDANSETRON 4MG INJ IVP PRN (15:12)
[2020-08-20] MEDS: FUROSEMIDE 40MG VIAL IV SCH (20:00)
[2020-08-20] MEDS: TAMSULOSIN HCL 0.4 MG CAP.ER.24H PO SCH (20:18)
[2020-08-20] MEDS: ATORVASTATIN 20 MG TABLET PO SCH (20:18)
[2020-08-20] MEDS: CEFTRIAXONE 1G VIAL IVP SCH (20:18)
[2020-08-21 04:10] LABS: HEMATOCRIT 23.7 % (36-48); MEAN CORPUSCULAR HEMOGLOBIN 30.4 pg (27.0-33.0); MEAN CORPUSCULAR HGB CONC 32.5 g/dL (32.0-36.0); MEAN CORPUSCULAR VOLUME 93.7 fL (79-99); NUCLEATED RED BLOOD CELLS 0.2 % (0.0-0.19); PLATELET COUNT (AUTO) 274 K/uL (130-400); RED BLOOD CELL COUNT(AUTO) 2.53 MIL/uL (4.00-5.50); RED CELL DISTRIBUTION WIDTH 13.2 % (11.0-15.5); WHITE BLOOD COUNT (AUTO) 10.6 K/uL (4.8-10.8)
[2020-08-21 04:21] VITALS: BP 151/59
[2020-08-21] MEDS: HYDROCODONE/ACETAMINOPHEN 5/325 MG TAB PO PRN ×3 (04:21→17:35)
[2020-08-21 04:33] LABS: ALBUMIN 2.3 g/dL (3.5-5.0); BILIRUBIN,TOTAL 0.4 mg/dL (0.2-1.0); CREATININE 5.2 mg/dL (0.5-1.5); POTASSIUM 4.2 mmol/L (3.5-5.1); TOTAL PROTEIN, SERUM 6.7 g/dL (6.0-8.3)
[2020-08-21 04:39] LABS: BAND NEUTROPHILS % (MANUAL) 50 % (0-2); BASOPHILS % (MANUAL) 25 % (0-2); EOSINOPHILS % (MANUAL) 17 % (1-6); LYMPHOCYTES % (MANUAL) 42 % (22-44); MAN.DIFF COMMENT-IMPRESSION MANUAL DIFFERENTIAL; MONOCYTES % (MANUAL) 8 % (2-9); PLATELET MORPHOLOGY COMMENT ADEQUATE; SEGMENTED NEUTROPHILS % 275 % (40-70)
[2020-08-21] MEDS: INSULIN HUMULIN R 100 UNIT/ML 3ML SQ SCH ×4 (04:56→20:27)
[2020-08-21] MEDS: PANTOPRAZOLE 40 MG TAB DR PO SCH (05:35)
[2020-08-21] MEDS: IRON SUCROSE COMPLEX 100 MG in 0.9%NACL 50ML 50 ML IV SCH (07:04)
[2020-08-21] MEDS: AMLODIPINE 5 MG TAB PO SCH (07:04)
[2020-08-21] MEDS: Vitamin B Complex/Vit C/Folic Acid PO SCH (07:04)
[2020-08-21] MEDS: CARVEDILOL 25 MG TABLET PO SCH ×2 (07:05→20:08)
[2020-08-21] MEDS: NITROGLYCERIN 1GM OINT 1 INCH/1GM TD SCH ×3 (07:05→20:09)
[2020-08-21] MEDS: SODIUM BICARBONATE 650 MG TAB PO SCH ×3 (07:05→16:35)
[2020-08-21] MEDS: INSULIN GLARGINE 100 UNITS/ML 10 ML VIAL SQ SCH (07:07)
[2020-08-21 08:00] VITALS: BP 155/51
[2020-08-21 11:55] VITALS: BP 121/39
[2020-08-21 16:52] VITALS: BP 133/75
[2020-08-21 19:36] VITALS: BP 151/51
[2020-08-21] MEDS: FUROSEMIDE 40MG VIAL IV SCH (20:07)
[2020-08-21] MEDS: TAMSULOSIN HCL 0.4 MG CAP.ER.24H PO SCH (20:08)
[2020-08-21] MEDS: CEFTRIAXONE 1G VIAL IVP SCH (20:08)
[2020-08-21] MEDS: ATORVASTATIN 20 MG TABLET PO SCH (20:09)
[2020-08-22] VITALS (8 sets, daily range): BP systolic 128–161; BP diastolic 43–61
[2020-08-22] MEDS: NITROGLYCERIN 1GM OINT 1 INCH/1GM TD SCH ×4 (03:02→20:48)
[2020-08-22 05:03] LABS: HEMATOCRIT 21.1 % (36-48); MEAN CORPUSCULAR HEMOGLOBIN 30.9 pg (27.0-33.0); MEAN CORPUSCULAR HGB CONC 33.6 g/dL (32.0-36.0); MEAN CORPUSCULAR VOLUME 91.7 fL (79-99); RED BLOOD CELL COUNT(AUTO) 2.3 MIL/uL (4.00-5.50); RED CELL DISTRIBUTION WIDTH 13.5 % (11.0-15.5); WHITE BLOOD COUNT (AUTO) 9.1 K/uL (4.8-10.8)
[2020-08-22 05:14] LABS: CREATININE 5.9 mg/dL (0.5-1.5); POTASSIUM 4.3 mmol/L (3.5-5.1)
[2020-08-22] MEDS: INSULIN HUMULIN R 100 UNIT/ML 3ML SQ SCH ×4 (06:12→21:00)
[2020-08-22] MEDS: PANTOPRAZOLE 40 MG TAB DR PO SCH (06:12)
[2020-08-22] MEDS: Vitamin B Complex/Vit C/Folic Acid PO SCH (09:41)
[2020-08-22] MEDS: SODIUM BICARBONATE 650 MG TAB PO SCH ×3 (09:42→17:19)
[2020-08-22] MEDS: CARVEDILOL 25 MG TABLET PO SCH ×2 (09:42→20:46)
[2020-08-22] MEDS: AMLODIPINE 5 MG TAB PO SCH (09:42)
[2020-08-22] MEDS: INSULIN GLARGINE 100 UNITS/ML 10 ML VIAL SQ SCH (09:44)
[2020-08-22] MEDS: ACETAMINOPHEN 325 MG TAB PO PRN (18:50)
[2020-08-22] MEDS: CEFTRIAXONE 1G VIAL IVP SCH (20:45)
[2020-08-22] MEDS: TAMSULOSIN HCL 0.4 MG CAP.ER.24H PO SCH (20:45)
[2020-08-22] MEDS: FUROSEMIDE 40MG VIAL IV SCH (20:45)
[2020-08-22] MEDS: ATORVASTATIN 20 MG TABLET PO SCH (20:46)
[2020-08-23] VITALS (7 sets, daily range): BP systolic 140–175; BP diastolic 55–87
[2020-08-23] MEDS: NITROGLYCERIN 1GM OINT 1 INCH/1GM TD SCH ×4 (02:44→20:11)
[2020-08-23 04:21] LABS: MEAN CORPUSCULAR HEMOGLOBIN 30.4 pg (27.0-33.0); MEAN CORPUSCULAR HGB CONC 32.9 g/dL (32.0-36.0); MEAN CORPUSCULAR VOLUME 92.5 fL (79-99); PLATELET COUNT (AUTO) 244 K/uL (130-400); RED BLOOD CELL COUNT(AUTO) 2.27 MIL/uL (4.00-5.50); RED CELL DISTRIBUTION WIDTH 13.6 % (11.0-15.5); WHITE BLOOD COUNT (AUTO) 8.6 K/uL (4.8-10.8)
[2020-08-23 04:32] LABS: CREATININE 5.7 mg/dL (0.5-1.5)
[2020-08-23 04:49] LABS: BASOPHILS % (MANUAL) 1 % (0-2); EOSINOPHILS % (MANUAL) 2 % (1-6); LYMPHOCYTES % (MANUAL) 19 % (22-44); MAN.DIFF COMMENT-IMPRESSION MANUAL DIFFERENTIAL; MONOCYTES % (MANUAL) 6 % (2-9); SEGMENTED NEUTROPHILS % 72 % (40-70)
[2020-08-23] MEDS: PANTOPRAZOLE 40 MG TAB DR PO SCH (06:30)
[2020-08-23] MEDS: INSULIN HUMULIN R 100 UNIT/ML 3ML SQ SCH ×4 (06:33→20:10)
[2020-08-23] MEDS: SODIUM BICARBONATE 650 MG TAB PO SCH ×3 (08:59→17:00)
[2020-08-23] MEDS: AMLODIPINE 5 MG TAB PO SCH (08:59)
[2020-08-23] MEDS: CARVEDILOL 25 MG TABLET PO SCH ×2 (08:59→20:05)
[2020-08-23] MEDS: Vitamin B Complex/Vit C/Folic Acid PO SCH (08:59)
[2020-08-23] MEDS: INSULIN GLARGINE 100 UNITS/ML 10 ML VIAL SQ SCH (09:02)
[2020-08-23 11:53] LABS: HEMATOCRIT 25.3 % (36-48); MEAN CORPUSCULAR HEMOGLOBIN 30.7 pg (27.0-33.0); MEAN CORPUSCULAR HGB CONC 33.6 g/dL (32.0-36.0); MEAN CORPUSCULAR VOLUME 91.3 fL (79-99); RED BLOOD CELL COUNT(AUTO) 2.77 MIL/uL (4.00-5.50); RED CELL DISTRIBUTION WIDTH 14.1 % (11.0-15.5); WHITE BLOOD COUNT (AUTO) 9.4 K/uL (4.8-10.8)
[2020-08-23] MEDS: ACETAMINOPHEN 325 MG TAB PO PRN ×2 (13:28→20:04)
[2020-08-23] MEDS: ATORVASTATIN 20 MG TABLET PO SCH (20:04)
[2020-08-23] MEDS: TEMAZEPAM 15 MG CAPSULE PO PRN (20:04)
[2020-08-23] MEDS: TAMSULOSIN HCL 0.4 MG CAP.ER.24H PO SCH (20:05)
[2020-08-23] MEDS: CEFTRIAXONE 1G VIAL IVP SCH (20:05)
[2020-08-23] MEDS: FUROSEMIDE 40MG VIAL IV SCH (20:06)
[2020-08-24] MEDS: NITROGLYCERIN 1GM OINT 1 INCH/1GM TD SCH ×4 (03:23→20:21)
[2020-08-24 04:16] VITALS: BP 170/62
[2020-08-24 04:25] LABS: BASOPHILS % (AUTO) 0.3 % (0.0-5.0); HEMATOCRIT 25.7 % (36-48); MEAN CORPUSCULAR HEMOGLOBIN 29.9 pg (27.0-33.0); MEAN CORPUSCULAR HGB CONC 31.9 g/dL (32.0-36.0); MEAN CORPUSCULAR VOLUME 93.8 fL (79-99); MONOCYTES % (AUTO) 12.8 % (3.0-13.0); NEUTROPHILS % (AUTO) 66.6 % (40.0-77.0); PLATELET COUNT (AUTO) 262 K/uL (130-400); RED BLOOD CELL COUNT(AUTO) 2.74 MIL/uL (4.00-5.50); RED CELL DISTRIBUTION WIDTH 14.4 % (11.0-15.5); WHITE BLOOD COUNT (AUTO) 8.7 K/uL (4.8-10.8)
[2020-08-24 04:38] LABS: POTASSIUM 3.9 mmol/L (3.5-5.1)
[2020-08-24] MEDS: INSULIN HUMULIN R 100 UNIT/ML 3ML SQ SCH ×4 (07:30→20:33)
[2020-08-24] MEDS: PANTOPRAZOLE 40 MG TAB DR PO SCH (08:00)
[2020-08-24] MEDS: Vitamin B Complex/Vit C/Folic Acid PO SCH (08:43)
[2020-08-24] MEDS: SODIUM BICARBONATE 650 MG TAB PO SCH ×3 (08:43→17:07)
[2020-08-24] MEDS: AMLODIPINE 5 MG TAB PO SCH (08:44)
[2020-08-24] MEDS: CARVEDILOL 25 MG TABLET PO SCH ×2 (08:45→20:22)
[2020-08-24] MEDS: INSULIN GLARGINE 100 UNITS/ML 10 ML VIAL SQ SCH (08:51)
[2020-08-24] MEDS: EPOETIN ALFA-EPBX (NON-ESRD) 10,000 UNIT/ML VIAL SQ SCH (08:51)
[2020-08-24 12:00] VITALS: BP 140/59
[2020-08-24 16:00] VITALS: BP_SYST 163; BP_SYST 99; BP_DIAS 53; BP_DIAS 54
[2020-08-24 20:00] VITALS: BP 144/54
[2020-08-24] MEDS: TAMSULOSIN HCL 0.4 MG CAP.ER.24H PO SCH (20:21)
[2020-08-24] MEDS: TEMAZEPAM 15 MG CAPSULE PO PRN (20:21)
[2020-08-24] MEDS: FUROSEMIDE 40MG VIAL IV SCH (20:22)
[2020-08-24] MEDS: ATORVASTATIN 20 MG TABLET PO SCH (20:22)
[2020-08-25] VITALS: BP 117/48
[2020-08-25] MEDS: NITROGLYCERIN 1GM OINT 1 INCH/1GM TD SCH ×5 (03:39→20:45)
[2020-08-25 04:00] VITALS: BP 159/55
[2020-08-25 05:39] LABS: CREATININE 4.2 mg/dL (0.5-1.5)
[2020-08-25] MEDS: INSULIN HUMULIN R 100 UNIT/ML 3ML SQ SCH ×4 (07:30→20:40)
[2020-08-25] MEDS: Vitamin B Complex/Vit C/Folic Acid PO SCH (09:09)
[2020-08-25] MEDS: PANTOPRAZOLE 40 MG TAB DR PO SCH (09:09)
[2020-08-25] MEDS: AMLODIPINE 5 MG TAB PO SCH (09:09)
[2020-08-25] MEDS: SODIUM BICARBONATE 650 MG TAB PO SCH ×3 (09:09→16:56)
[2020-08-25] MEDS: CARVEDILOL 25 MG TABLET PO SCH ×2 (09:10→20:32)
[2020-08-25] MEDS: INSULIN GLARGINE 100 UNITS/ML 10 ML VIAL SQ SCH (09:12)
[2020-08-25 11:43] VITALS: BP 114/54
[2020-08-25 16:00] VITALS: BP 162/58
[2020-08-25 19:00] VITALS: BP 150/44
[2020-08-25] MEDS: FUROSEMIDE 40MG VIAL IV SCH (20:31)
[2020-08-25] MEDS: ATORVASTATIN 20 MG TABLET PO SCH (20:32)
[2020-08-25] MEDS: TAMSULOSIN HCL 0.4 MG CAP.ER.24H PO SCH (20:32)
[2020-08-25 23:44] VITALS: BP 159/51
[2020-08-26 03:45] VITALS: BP 161/72
[2020-08-26 05:05] LABS: BASOPHILS % (AUTO) 0.5 % (0.0-5.0); EOSINOPHILS % (AUTO) 2.6 % (0.0-8.0); HEMATOCRIT 26.2 % (36-48); LYMPHOCYTES % (AUTO) 17.8 % (21.0-51.0); MEAN CORPUSCULAR HEMOGLOBIN 29.5 pg (27.0-33.0); MEAN CORPUSCULAR HGB CONC 31.3 g/dL (32.0-36.0); MEAN CORPUSCULAR VOLUME 94.2 fL (79-99); MONOCYTES % (AUTO) 12.3 % (3.0-13.0); NEUTROPHILS % (AUTO) 65.8 % (40.0-77.0); PLATELET COUNT (AUTO) 251 K/uL (130-400); RED BLOOD CELL COUNT(AUTO) 2.78 MIL/uL (4.00-5.50); RED CELL DISTRIBUTION WIDTH 14.1 % (11.0-15.5); WHITE BLOOD COUNT (AUTO) 7.7 K/uL (4.8-10.8)
[2020-08-26 05:22] LABS: PHOSPHORUS 4.3 mg/dL (2.5-4.9)
[2020-08-26] MEDS: PANTOPRAZOLE 40 MG TAB DR PO SCH (06:10)
[2020-08-26] MEDS: INSULIN HUMULIN R 100 UNIT/ML 3ML SQ SCH ×4 (06:10→20:43)
[2020-08-26 07:52] VITALS: BP 141/42
[2020-08-26] MEDS: SODIUM BICARBONATE 650 MG TAB PO SCH ×3 (08:15→17:16)
[2020-08-26] MEDS: Vitamin B Complex/Vit C/Folic Acid PO SCH (08:15)
[2020-08-26] MEDS: AMLODIPINE 5 MG TAB PO SCH (08:17)
[2020-08-26] MEDS: CARVEDILOL 25 MG TABLET PO SCH ×2 (08:17→20:43)
[2020-08-26] MEDS: INSULIN GLARGINE 100 UNITS/ML 10 ML VIAL SQ SCH (08:22)
[2020-08-26] MEDS: NITROGLYCERIN 1GM OINT 1 INCH/1GM TD SCH ×3 (08:24→20:40)
[2020-08-26 11:08] VITALS: BP 179/72
[2020-08-26 15:27] VITALS: BP 172/73
[2020-08-26 20:20] VITALS: BP 193/77
[2020-08-26] MEDS: TAMSULOSIN HCL 0.4 MG CAP.ER.24H PO SCH (20:40)
[2020-08-26] MEDS: FUROSEMIDE 40MG VIAL IV SCH (20:40)
[2020-08-26] MEDS: ATORVASTATIN 20 MG TABLET PO SCH (20:40)
[2020-08-26 23:57] VITALS: BP 158/70
[2020-08-27 02:53] VITALS: BP 162/71
[2020-08-27] MEDS: NITROGLYCERIN 1GM OINT 1 INCH/1GM TD SCH ×4 (03:53→21:44)
[2020-08-27] MEDS: PANTOPRAZOLE 40 MG TAB DR PO SCH (06:36)
[2020-08-27] MEDS: INSULIN HUMULIN R 100 UNIT/ML 3ML SQ SCH ×4 (06:37→21:47)
[2020-08-27] MEDS ORDERED: KCL 20 MEQ ERTAB PO SCH ×2 (07:15→09:00)
[2020-08-27 07:47] VITALS: BP 173/74
[2020-08-27] MEDS: Vitamin B Complex/Vit C/Folic Acid PO SCH (07:59)
[2020-08-27] MEDS: SODIUM BICARBONATE 650 MG TAB PO SCH ×3 (08:00→17:13)
[2020-08-27] MEDS: CARVEDILOL 25 MG TABLET PO SCH ×2 (08:00→21:46)
[2020-08-27] MEDS: AMLODIPINE 5 MG TAB PO SCH (08:03)
[2020-08-27] MEDS: INSULIN GLARGINE 100 UNITS/ML 10 ML VIAL SQ SCH (08:04)
[2020-08-27 12:00] VITALS: BP 154/63
[2020-08-27 16:00] VITALS: BP 163/54
[2020-08-27] MEDS ORDERED: METRONIDAZOLE 500MG/100ML BAG 100 ML ONE (19:45)
[2020-08-27 20:00] VITALS: BP 151/44
[2020-08-27] MEDS: FUROSEMIDE 40MG VIAL IV SCH (21:44)
[2020-08-27] MEDS: ACETAMINOPHEN 325 MG TAB PO PRN (21:45)
[2020-08-27] MEDS: TAMSULOSIN HCL 0.4 MG CAP.ER.24H PO SCH (21:45)
[2020-08-27] MEDS: ATORVASTATIN 20 MG TABLET PO SCH (21:45)
[2020-08-28] VITALS: BP 148/54
[2020-08-28] MEDS: NITROGLYCERIN 1GM OINT 1 INCH/1GM TD SCH ×2 (03:00→08:37)
[2020-08-28 04:00] VITALS: BP 162/79
[2020-08-28 05:22] LABS: BASOPHILS % (AUTO) 0.4 % (0.0-5.0); EOSINOPHILS % (AUTO) 2.3 % (0.0-8.0); HEMATOCRIT 26.7 % (36-48); LYMPHOCYTES % (AUTO) 16.1 % (21.0-51.0); MEAN CORPUSCULAR HEMOGLOBIN 29.5 pg (27.0-33.0); MEAN CORPUSCULAR HGB CONC 31.1 g/dL (32.0-36.0); MONOCYTES % (AUTO) 14.2 % (3.0-13.0); NEUTROPHILS % (AUTO) 66.3 % (40.0-77.0); PLATELET COUNT (AUTO) 247 K/uL (130-400); RED BLOOD CELL COUNT(AUTO) 2.81 MIL/uL (4.00-5.50); RED CELL DISTRIBUTION WIDTH 13.6 % (11.0-15.5); WHITE BLOOD COUNT (AUTO) 7.7 K/uL (4.8-10.8)
[2020-08-28 05:28] LABS: ALBUMIN 2.1 g/dL (3.5-5.0); BILIRUBIN,TOTAL 0.5 mg/dL (0.2-1.0); CREATININE 3.3 mg/dL (0.5-1.5); POTASSIUM 3.9 mmol/L (3.5-5.1); TOTAL PROTEIN, SERUM 6.3 g/dL (6.0-8.3)
[2020-08-28] MEDS: PANTOPRAZOLE 40 MG TAB DR PO SCH (06:02)
[2020-08-28] MEDS: INSULIN HUMULIN R 100 UNIT/ML 3ML SQ SCH ×2 (06:02→11:17)
[2020-08-28 07:00] VITALS: BP 175/60
[2020-08-28] MEDS: Vitamin B Complex/Vit C/Folic Acid PO SCH (08:35)
[2020-08-28] MEDS: CARVEDILOL 25 MG TABLET PO SCH (08:36)
[2020-08-28] MEDS: AMLODIPINE 5 MG TAB PO SCH (08:36)
[2020-08-28] MEDS: SODIUM BICARBONATE 650 MG TAB PO SCH ×2 (08:36→11:45)
[2020-08-28] MEDS: INSULIN GLARGINE 100 UNITS/ML 10 ML VIAL SQ SCH (08:43)
[2020-08-28 09:13] VITALS: BP 155/62
[2020-08-28 11:30] VITALS: BP 147/54
== END 2020-08-28 13:11 | DRG 981 ==
LOC: EDH 09:32 → EDHIP 11:20 → 2DH 16:49 → 4CH 08-13 12:39 → 4BH 08-22 19:45
PROVIDERS: ADMIT Internal Medicine; ATTEND Internal Medicine
PROC: 30233N1 Transfusion of Nonautologous Red Blood Cells into Peripheral Vein, Percutaneous Approach (ICD-10-PCS; principal; 2020-08-18)
PROC: 04LE3DZ Occlusion of Right Internal Iliac Artery with Intraluminal Device, Percutaneous Approach (ICD-10-PCS; 2020-08-18)
PROC: B41F1ZZ Fluoroscopy of Right Lower Extremity Arteries using Low Osmolar Contrast (ICD-10-PCS; 2020-08-18)
DX: J96.01 Acute respiratory failure with hypoxia (principal); J15.6 Pneumonia due to other Gram-negative bacteria; K66.1 Hemoperitoneum; I50.33 Acute on chronic diastolic (congestive) heart failure; N17.9 Acute kidney failure, unspecified; I13.2 Hypertensive heart and chronic kidney disease with heart failure and with stage 5 chronic kidney disease, or end stage renal disease; E87.2 Acidosis; N39.0 Urinary tract infection, site not specified; D62 Acute posthemorrhagic anemia; G45.9 Transient cerebral ischemic attack, unspecified; N18.5 Chronic kidney disease, stage 5; E87.5 Hyperkalemia; D63.8 Anemia in other chronic diseases classified elsewhere; E11.22 Type 2 diabetes mellitus with diabetic chronic kidney disease; N81.4 Uterovaginal prolapse, unspecified; E87.70 Fluid overload, unspecified; E78.5 Hyperlipidemia, unspecified; E11.65 Type 2 diabetes mellitus with hyperglycemia; D50.9 Iron deficiency anemia, unspecified; D63.1 Anemia in chronic kidney disease; K80.20 Calculus of gallbladder without cholecystitis without obstruction; N13.9 Obstructive and reflux uropathy, unspecified; Z20.822 Contact with and (suspected) exposure to COVID-19; Z83.3 Family history of diabetes mellitus; Z82.49 Family history of ischemic heart disease and other diseases of the circulatory system
CPT/HCPCS: 36245; 36415; 36600; 37244; 71045; 74018; 74176; 75710; 76705; 76770; 80048; 80053; 80076; 81001; 82533; 82550; 82607; 82728; 82803; 82948; 83605; 83735; 83874; 83880; 84100; 84132; 84145; 84443; 84484; 85014; 85018; 85025; 85027; 85378; 85610; 85730; 86850; 86900; 86901; 86923; 87040; 87077; 87088; 87186; 87426; 87804; 93005; 93306; 93970; 94660; 94664; 94760; 97039; 99291; C1760; C1769; C1894; G0378; J0456; J0610; J0696; J1644; J1650; J1756; J1815; J1940; J2405; J2920; J3490; J7050; J7070; P9016; Q9967; U0003